=== PATIENT | male | born 1970 | race African-American/Black ===

== ENCOUNTER 2020-03-05 17:03 | Inpatient (IN) | payer OTHER ==
[~2020-03-05 17:03] MED LIST: Iopamidol 370 76% 100 ML VIAL ONE
[2020-03-05 18:07] LABS: #Lymphocytes 0.8 thou/uL (1.20-3.40); #Monocytes 1.9 thou/uL (0.11-0.59); #Neutrophils 13.6 thou/uL (1.40-6.50); %Basophils 0.1 % (0.0-1.0); %Eosinophils 0.1 % (0.0-10.0); %Monocytes 11.6 % (0.0-10.0); %Neutrophils 83.2 % (42.0-75.0); Hemoglobin 17.2 g/dL (14.0-18.0); Mean Corpuscular Hemoglobin 27.7 pg (27.0-31.0); Mean Corpuscular Volume 83.8 fL (78.0-98.0); Mean Platelet Volume 7.3 fL (7.4-10.4); Platelet Count 321 thou/uL (130-400); RBC Distribution Width 12.7 % (11.5-14.5); Red Blood Cell (RBC) Count 6.22 mill/uL (4.70-6.10); White Blood Cell (WBC) Count 16.3 thou/uL (4.8-10.8)
[2020-03-05 18:27] LABS: ALT (SGPT) 24 U/L (8-55); AST (SGOT) 16 U/L (5-34); Albumin 5.1 g/dL (3.5-5.0); Alkaline Phosphatase 92 U/L (40-110); Anion Gap 21 mmol/L (10-20); BUN (Urea Nitrogen) 17 mg/dL (8.9-20.6); Bilirubin, Total 1.2 mg/dL (0.2-1.2); Calc. Creatinine Clearance 0 mL/min (70-130); Calcium 10.8 mg/dL (7.8-10.44); Carbon Dioxide 20 mmol/L (22-29); Chloride 99 mmol/L (98-107); Estimated GFR-MDRD 76; Globulin 4.3 g/dL (2.4-3.5); Glucose 278 mg/dL (70-105); Potassium 4.8 mmol/L (3.5-5.1); Protein, Total 9.4 g/dL (6.0-8.3); Sodium 135 mmol/L (136-145)
--- NOTE | 2020-03-05 19:12 | RAD ---
SINGLE VIEW OF THE CHEST: Comparison: None History: Chest pain, possible hernia. FINDINGS: Single view of the chest shows a normal sized cardiomediastinal silhouette. There is no evidence of c onsolidation, mass, or pleural effusion. The bones are unremarkable. IMPRESSION: No evidence of acute cardiopulmonary disease. POS: EAA
[2020-03-05 19:37] LABS: Bacteria/HPF None Seen HPF (None Seen); Bilirubin Negative (Negative); Blood, Urine Negative (Negative); Clarity Clear (Clear); Glucose, Urine (Dipstick) Greater than 1000 mg/dL (Negative); Leukocyte Negative Leu/uL (Negative); Nitrite Negative (Negative); Protein, Urine (Dipstick) 30 mg/dL (Neg-Trace); RBC/HPF 0-3 HPF (0-3); Squamous Epithelial None Seen HPF (0-3); Urobilinogen Normal mg/dL (Less than 2); WBC/HPF 0-3 HPF (0-3)
--- NOTE | 2020-03-05 20:56 | CT ---
CT OF THE CHEST WITHOUT CONTRAST: Comparison: None History: Upper abdominal pain. 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 Evaluate for Covid infiltrates in the lungs. Diabetic patien t. Technique: Multiple contiguous axial images were obtained in a CT of the chest without contrast. Sagi ttal and coronal reformats were performed. FINDINGS: Atelectasis is seen in the right lung base. There is a 5 mm nodule in the right lung base on Image 31 of 56. No focal infiltrates are seen that are suspicious for an atypical infection. No pleural effus ion is seen. The heart is normal in size without focal cardiac abnormality. No hilar or mediastinal lymphadenopath y are seen. The osseous structures and chest wall soft tissues are unremarkable. Please see dedicated CT abdomen for findings below the diaphragm. IMPRESSION: 1. No evidence of acute intrathoracic abnormality. 2. Right lower lobe pulmonary nodule. A follow up CT in 6 months to 1 year is recommended to ensure s tability. POS: EAA
--- NOTE | 2020-03-05 21:01 | CT ---
CT ABDOMEN AND PELVIS WITH CONTRAST: Comparison: None History: Upper abdominal pain. Technique: Multiple contiguous axial images were obtained in a CT of the abdomen and pelvis with cont rast. Sagittal and coronal reformats were performed. FINDINGS: There is a 5.9 cm ventral hernia containing small bowel loops. There are distended proximal small bow el loops measuring up to 3.8 cm in size with decompressed distal small bowel loops. There is a transi tion point within the hernia. There is stranding changes surrounding the small bowel loops within the hernia. No free air or free fluid are seen in the abdomen or pelvis. The colon is unremarkable. The appendix is normal. The liver, gallbladder, kidneys, adrenal glands, spleen, and pancreas are unremarkable. No abdominal or pelvic lymphadenopathy are seen. Post-surgical changes are seen in the spine. Atelectasis is seen in the right lung base. IMPRESSION: Ventral hernia containing small bowel. There appears to be a small bowel obstruction secondary to inc arceration of the small bowel loops within the hernia. POS: EAA
[2020-03-05 21:19] LABS: Lactic Acid 3.6 mmol/L (0.5-2.2)
[2020-03-05] MEDS ORDERED: Morphine 4 MG/ML VIAL ONE (22:02)
[2020-03-05] MEDS ORDERED: Ondansetron PF 4 MG/2 ML Vial ONE (22:02)
[2020-03-05] MEDS ORDERED: Lidocaine Viscous Sol 2% 15 ml UD Cup ONE (22:02)
[2020-03-06] MEDS ORDERED: Ondansetron ODT 4 MG TAB SL PRN (02:04)
[2020-03-06] MEDS ORDERED: Sodium Chloride 0.9% 1,000 ML IV SCH ×2 (02:04→06:45)
[2020-03-06] MEDS ORDERED: Ondansetron PF 4 MG/2 ML Vial IVP PRN (02:04)
[2020-03-06 02:13] VITALS: BMI 34.5
[2020-03-06] MEDS ORDERED: Ketorolac Tromethamine 30 MG/ML VIAL IVP PRN (02:34)
[2020-03-06] MEDS ORDERED: Sodium Chloride 0.9% (PF) 10 ML VIAL FS PRN (02:35)
[2020-03-06] MEDS ORDERED: Morphine 2 MG/ML SYRINGE SLOW IVP PRN (02:35)
[2020-03-06] MEDS ORDERED: Enoxaparin Sodium 40 MG/0.4 ML SYRINGE SC SCH (02:45)
[2020-03-06] MEDS: Morphine 4 MG/ML VIAL SLOW IVP PRN ×2 (02:49→21:05)
[2020-03-06] MEDS: Sodium Chloride 0.9% 1,000 ML IV SCH ×4 (02:49→18:06)
[2020-03-06] MEDS: Pantoprazole 40 MG VIAL IVP SCH (07:50)
[2020-03-06] MEDS ORDERED: Piperacillin/Tazobactam 3.375 GM in Sodium Chloride 0.9% 100 ML IVPB SCH (09:00)
[2020-03-06] MEDS ORDERED: Morphine 4 MG/ML VIAL SLOW IVP SCH (09:00)
[2020-03-06] MEDS ORDERED: Ketorolac Tromethamine 30 MG/ML VIAL IVP SCH ×2 (09:15→12:00)
--- NOTE | 2020-03-06 09:53 | HP ---
HISTORY OF PRESENT ILLNESS: Ra Chicas is a 50-year-old black male, incarcerated for three years, has an incarcerated ventral hernia. The patient had an umbilical hernia as a child. He had a ventral hernia. The patient had a lumbar surgery, had a retroperitoneal approach, left paramedian incision and shortly after that developed abdominal pain and had a ventral hernia repair in the location between the umbilicus and xiphoid junction upper two-third, lower one-third. He then had a recurrence of that in 2014 and had a repair with mesh. He was told he had multiple hernias. He has had a recurrent hernia in the last 2 years. It has become acutely painful in the last 24 to 48 hours and could not be reduced at the [facility] snf. The patient was seen in the emergency room locally, underwent CAT scan of chest, abdomen, and pelvis noting an incarcerated hernia with proximally dilated small bowel loops and distally decompressed small bowel loops. The CAT scan of his chest and chest x-ray were negative for any acute pulmonary problems. There was noted to be a 5 mm nodule in the right lung base. Followup CAT scan in six months to a year recommended. Prior to incarceration, there is no history of tobacco use. He rarely used alcohol prior to incarceration. There is no history of drug use. As noted above, there is no history of COVID exposures that he know of. He stays in the [facility], where he is incarcerated. There has been no COVID cases. He had a COVID test done on admission, results pending. OUTPATIENT MEDICATIONS: Not listed. PAST MEDICAL HISTORY: Hypertension, medications to treat not listed. He has never had any cardiac problems. He has never had a colonoscopy. PAST SURGICAL HISTORY: Umbilical hernia repair as a child. Lumbar surgery. Subsequent ventral hernias resulted in that retroperitoneal approach through a paramedian incision. Hernia repaired and had a recurrent hernia in 2015 or 2016 had that repaired with mesh and had his recurrent ventral hernia incarcerated at this time. REVIEW OF SYSTEMS: Noncontributory 10-point. No cardiac symptomatology. No pulmonary symptomatology. FAMILY HISTORY: Noncontributory. PHYSICAL EXAMINATION: VITAL SIGNS: 5 feet 10 inches, 241 pounds, 34 BMI. 99.1, 114, 18, 136/81. HEAD, EARS, EYES, NOSE, AND THROAT: Unremarkable. LUNGS: Clear to auscultation. CARDIAC: Regular rate and rhythm without murmur or gallop. ABDOMEN: Soft, slightly tender, incarcerated ventral hernia that I cannot reduce after prolonged effort. He has a left midline paramedian incision. This is present from the umbilicus superiorly toward the xiphoid. Incarcerated hernia is at the junction of the mid two-third junction and lower third area between the xiphoid and the umbilicus. EXTREMITIES: No ankle edema. NEUROLOGICAL: Intact. No focal deficits. No lymphadenopathy in neck, axilla, or groins. Cranial nerves intact. LABORATORY DATA: Basic metabolic profile is normal. Glucose 278. Lactic acid high at 3.2. Calcium 10.8. White count 16, hemoglobin 17, differential unremarkable. ASSESSMENT AND PLAN: 1. Incarcerated hernia. I cannot reduce. I would recommend emergent repair, possibly using mesh. He understands risks and benefits and consents. 2. Hypertension, need medication list from the snf. 3. Multiple previous operations listed. 4. Incarcerated for the past 3 years. 5. COVID testing in an asymptomatic patient with a negative CAT scan of the chest and negative chest x-ray without symptoms of COVID, test to be available in 24 to 48 hours. 6. Right pulmonary nodule, probably benign. Followup CAT scan in six months to a year. Job ID: [id number]
[2020-03-06] MEDS ORDERED: Ondansetron ODT 8 MG TAB SL PRN (10:11)
[2020-03-06] MEDS ORDERED: Ondansetron ORAL SOLN. 4 MG/5 ML UDCUP PO PRN (10:11)
[2020-03-06] MEDS ORDERED: Famotidine/PF 20 mg/2ml Vial ONE (10:12)
[2020-03-06] MEDS ORDERED: Fentanyl 100 MCG/2 ML VIAL ONE ×2 (10:12→12:01)
[2020-03-06] MEDS ORDERED: Midazolam HCl 2 mg/2 ml Vial ONE (10:12)
[2020-03-06] MEDS ORDERED: Ondansetron PF 4 MG/2 ML Vial ONE (11:28)
[2020-03-06] MEDS ORDERED: Metoclopramide HCl 10 MG/2 ML VIAL ONE (11:28)
[2020-03-06] MEDS ORDERED: Succinylcholine Chloride 20 MG/ML 10 ml SYRINGE FS ONE (11:28)
[2020-03-06] MEDS ORDERED: Dexamethasone 20 MG/5 ML VIAL ONE (11:28)
[2020-03-06] MEDS ORDERED: Lidocaine 1% PF 5 ML VIAL ONE (11:28)
[2020-03-06] MEDS ORDERED: PHENYLEPHRINE-NS 100 MCG/ML 10 ML SYRINGE ONE (11:28)
[2020-03-06] MEDS ORDERED: PROPOFOL 200 MG/20 ML VIAL ONE (11:28)
[2020-03-06] MEDS ORDERED: SUGAMMADEX SODIUM 500 MG/5 ML VIAL ONE (12:01)
[2020-03-06] MEDS ORDERED: Dextrose 5% in Water 1,000 ML IV PRN (12:49)
[2020-03-06] MEDS ORDERED: Dextrose 50% Abboject 50 ML SYRINGE SLOW IVP PRN (12:49)
[2020-03-06] MEDS ORDERED: Promethazine HCl 25 MG/ML VIAL SLOW IVP PRN (12:55)
[2020-03-06] MEDS ORDERED: Ondansetron HCl/PF 4 MG/2 ML Vial IVP PRN (12:55)
[2020-03-06] MEDS ORDERED: Promethazine HCl 25 MG/ML VIAL IM PRN (12:55)
[2020-03-06] MEDS ORDERED: hydrALAZINE 20 MG/ML VIAL SLOW IVP PRN (12:56)
[2020-03-06] MEDS: HumaLOG 300 UNITS/3 ML VIAL SC PRN (15:36)
[2020-03-06] MEDS: Ketorolac Tromethamine 30 MG/ML VIAL IVP SCH ×2 (15:36→19:51)
[2020-03-06] MEDS: Piperacillin/Tazobactam 4.5 GM in Sodium Chloride 0.9% 100 ML IVPB SCH ×2 (17:07→23:52)
--- NOTE | 2020-03-06 18:12 | OP ---
DATE OF PROCEDURE: 03/06/2020 PREOPERATIVE DIAGNOSIS: Incarcerated ventral hernia, recurrent, third time, incarcerated status, [facility], COVID pending, negative CAT scan of chest and negative chest x-ray, oxygenating normally, small-bowel obstruction, inability to reduce his hernia. POSTOPERATIVE DIAGNOSIS: Strangulated ventral hernia without perforation, although foul smelling; adhesions from prior surgery; gangrenous small bowel segment. PROCEDURE: Exploratory laparotomy, adhesiolysis, small-bowel resection with primary anastomosis, ventral hernia repair without mesh (continuous suture of PDS with internal retentions of PDS). Wound VAC application of the skin and subcutaneous tissue after resecting hernia sac from the subcutaneous tissue. ANESTHESIA: General. ESTIMATED BLOOD LOSS: Twenty-seven mL. BLOOD TRANSFUSION: None. DESCRIPTION OF PROCEDURE: Patient was taken to the operating room, where under general anesthesia, abdomen was prepared with ChloraPrep and draped in routine fashion. Manley catheter had been placed at the beginning of the procedure and left in place. Midline incision was made, carried through the skin and subcutaneous tissue. There was incarcerated small bowel, approached in the midline. There was a thick adipose layer. There were multiple hernia defects with incarcerated small bowel gangrenous. There were multiple fascial bridges. Incision extended cephalad and caudally as necessary to perform the procedure. Fascia opened. Fascial bridges taken down, incarcerated small bowel leaving the abdominal cavity. Adhesiolysis performed, freeing omental adhesions and small bowel adhesions without small bowel spillage. There were irreversible gangrenous changes in segments of small bowel. Adhesiolysis carried out to allow bowel resection. The fascial edges were initially clean. Using cautery, removing attached gangrenous omentum and fatty tissue to identify the fascia. Hernia sacs removed from the subcutaneous tissues to identify the fascia clearly. Subcutaneous tissue was mobilized off the fascia, then identified the fascia clearly. Small bowel segment resected dividing the mesentery with the Impact LigaSure, resecting a segment of small bowel about 10 inches in length and small bowel anastomosis made by making two enterostomies and the 75 stapling device used for the anastomosis and defect closed with resecting the specimen with 2 fires of the MEHREEN. Mesenteric defect closed with 2-0 and 3-0 silk sutures. Anastomosis reinforced with interrupted Lembert sutures of 3-0 silk. Good anastomosis palpated. There was no leak. Abdominal cavity thoroughly irrigated. Our gloves were changed. Sponge and needle counts were correct. Two separate films were placed between the viscera and abdominal wall. Internal retention sutures of #1 PDS placed in the midline and in the upper and lower fascia. Midline fascia was closed with continuous suture of #1 PDS. Internal retention sutures tied. Subcutaneous tissues inspected, noted to be hemostatic. They were irrigated. Wound Care Team arrived to place a wound VAC. Patient tolerated the procedure well. Job ID: [id number]
[2020-03-06] MEDS: Enoxaparin Sodium 40 MG/0.4 ML SYRINGE SC SCH (19:52)
[2020-03-07] MEDS: Ketorolac Tromethamine 30 MG/ML VIAL IVP SCH ×4 (03:32→20:35)
[2020-03-07] MEDS: Sodium Chloride 0.9% 1,000 ML IV SCH ×3 (03:33→15:28)
[2020-03-07 05:27] LABS: Hemoglobin A1c 8.7 % (4.0-6.0)
[2020-03-07 05:29] LABS: Band 4 % (5-11); Eosinophils 1 % (0-10); Hemoglobin 12.3 g/dL (14.0-18.0); Lymphocytes 18 % (21-51); MDiff Complete? YES; Mean Corpuscular HGB CONC 32.5 g/dL (32.0-36.0); Mean Corpuscular Volume 86.2 fL (78.0-98.0); Mean Platelet Volume 7.3 fL (7.4-10.4); Metamyelocyte 1 % (0-0); Monocytes 11 % (0-10); Neutrophil 65 % (42-75); Platelet Count 234 thou/uL (130-400); Platelet Morphology Comment Appears Adequate; RBC Distribution Width 12.5 % (11.5-14.5); Red Blood Cell (RBC) Count 4.41 mill/uL (4.70-6.10); White Blood Cell (WBC) Count 6.5 thou/uL (4.8-10.8)
[2020-03-07] MEDS: Levothyroxine Sodium 100 MCG TAB PO SCH (05:37)
[2020-03-07] MEDS: Piperacillin/Tazobactam 4.5 GM in Sodium Chloride 0.9% 100 ML IVPB SCH ×3 (05:39→17:28)
[2020-03-07 05:50] LABS: Anion Gap 10 mmol/L (10-20); BUN (Urea Nitrogen) 23 mg/dL (8.9-20.6); Calc. Creatinine Clearance 132 mL/min (70-130); Calcium 8.6 mg/dL (7.8-10.44); Carbon Dioxide 25 mmol/L (22-29); Chloride 106 mmol/L (98-107); Estimated GFR-MDRD 90; Glucose 205 mg/dL (70-105); Sodium 137 mmol/L (136-145)
[2020-03-07] MEDS: HumaLOG 300 UNITS/3 ML VIAL SC PRN ×3 (05:51→17:27)
[2020-03-07] MEDS: Pantoprazole 40 MG VIAL IVP SCH (09:19)
[2020-03-07] MEDS: Lisinopril 5 MG TAB PO SCH (09:19)
[2020-03-07] MEDS ORDERED: Acetaminophen 500 MG TAB PO PRN (13:17)
[2020-03-07] MEDS ORDERED: traMADol HCl 50 MG TAB PO PRN (13:17)
--- NOTE | 2020-03-07 14:37 | PRG ---
DATE OF SERVICE: SUBJECTIVE: Mr. Chicas is doing well. He is tolerating full liquids without problems. There has been no nausea or vomiting. He has passed flatus. He has been urinating well. In fact, he has been mobilizing fluids. His abdomen is baseline stable. Further discussion with the patient's prior surgeries revealed that biological mesh was used and this is why I could not find mesh at the time of the exploration. This was in 2014, when that was appropriate. We had a discussion today about recurrent hernias, weight control, and diabetes management. OBJECTIVE: VITAL SIGNS: 98.9, 93, 140/83. HEAD, EARS, EYES, NOSE, AND THROAT: Unremarkable. LUNGS: Clear to auscultation. CARDIAC: Regular rate and rhythm without murmur or gallop. ABDOMEN: Soft. Bowel sounds present, plus flatus. Wound VAC in place. EXTREMITIES: Unremarkable. LABORATORY DATA: No laboratories. ASSESSMENT AND PLAN: 1. Doing well postoperatively. Advance to a diabetic diet in the morning. Resume metformin and insulin subcu. Glucose is under good control. Hemoglobin A1c was 8.7 this morning. Glucose is 197 to 227. Plan to review his wound tomorrow when they change the wound VAC. He may be ready for discharge in the next day or two pending his clinical course. I have reinforced to him that he needs to avoid lifting over 25 pounds for eight weeks. I have apprised him as to the increased risk of incisional hernia repair and that if this happens again, he will need to seek attention immediately to prevent strangulation, incarceration such as happened this hospitalization. 2. Diabetes mellitus, insulin dependent. 3. Hypertension. 4. Body mass index of 34, 5 feet 10 inches, 241 pounds. I have emphasized weight control for his obesity. Job ID: [id number]
[2020-03-07] MEDS: traMADol HCl 50 MG TAB PO PRN (15:25)
--- NOTE | 2020-03-07 17:06 | PQF ---
CLINICAL DOCUMENTATION IMPROVEMENT CLARIFICATION FORM: ICD-10 Updated PLEASE DO AN ADDENDUM TO THE PROGRESS NOTE WITH ANY DOCUMENTATION UPDATES OR ADDITIONS AND CARRY THROUGH TO DC SUMMARY. THANK YOU. DATE: 03/07/20 ATTN: DR. SKINNER Please exercise your independent, professional judgment in responding to the clarification form. Clinical indicators are provided on the bottom of this form for your review Please check appropriate box(s) to clarify if the following diagnosis has been ruled in or ruled out: "SEPSIS" [ ] Ruled in diagnosis [ ] Continue to treat [ yes ] Resolved [ ] Ruled out diagnosis [ ] Improving [ ] Cannot rule out diagnosis [ yes] Other diagnosis [ ] Unable to determine In addition, please specify: Present on Admission (POA): [yes ] Yes [ ] No [ ] Unable to determine For continuity of documentation, please document condition throughout progress notes and discharge summary. Thank You. 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 All Rights Reserved [email or web address] [email or web address]
[2020-03-07] MEDS: metFORMIN 500 MG TAB PO SCH (17:28)
[2020-03-07] MEDS: Enoxaparin Sodium 40 MG/0.4 ML SYRINGE SC SCH (20:36)
[2020-03-07] MEDS: Atorvastatin Calcium 40 MG TAB PO SCH (20:36)
[2020-03-07] MEDS: NPH, Human Insulin Isophane 300 UNIT/3 ML VIAL SC SCH (20:37)
[2020-03-08] MEDS: Piperacillin/Tazobactam 4.5 GM in Sodium Chloride 0.9% 100 ML IVPB SCH ×8 (00:12→23:54)
[2020-03-08] MEDS: Sodium Chloride 0.9% 1,000 ML IV SCH (00:53)
[2020-03-08] MEDS: Ketorolac Tromethamine 30 MG/ML VIAL IVP SCH ×2 (02:35→08:08)
[2020-03-08] MEDS: Levothyroxine Sodium 100 MCG TAB PO SCH (06:02)
[2020-03-08] MEDS: metFORMIN 500 MG TAB PO SCH ×2 (08:07→17:03)
[2020-03-08] MEDS: Lisinopril 5 MG TAB PO SCH (08:08)
[2020-03-08] MEDS: Pantoprazole 40 MG VIAL IVP SCH (08:08)
[2020-03-08] MEDS ORDERED: HYDROcodone/Acetaminophen 5/325 mg Tablet PO PRN ×2 (09:00)
[2020-03-08] MEDS: Morphine 4 MG/ML VIAL SLOW IVP PRN (09:13)
[2020-03-08] MEDS: NPH, Human Insulin Isophane 300 UNIT/3 ML VIAL SC SCH ×2 (09:49→20:38)
[2020-03-08] MEDS ORDERED: Ibuprofen 600 MG TAB PO PRN (12:29)
--- NOTE | 2020-03-08 12:48 | PRG ---
DATE OF SERVICE: 03/08/2020 SUBJECTIVE: Ra Chicas is doing well today. He is tolerating his diet. Wound Care Team at bedside and wound VAC has been changed. His wound looks healthy. He is healing, not ready for secondary closure. Wound VAC replaced. The patient did not have any nausea or vomiting. He is tolerating his diet. OBJECTIVE: LUNGS: Clear to auscultation. CARDIAC: Regular rate and rhythm without murmur or gallop. ABDOMEN: Soft, passing flatus, tolerating regular diet. VITAL SIGNS: Temperature 98.4 degrees, heart rate 100, respiratory rate 18, blood pressure 144/87. ASSESSMENT AND PLAN: The patient is doing well. Continue to observe today. Plan to transfer to long-term tomorrow. The patient has 1 out of 2 positive blood cultures for Escherichia coli. Sensitivities are pending. He is on Zosyn. I have added Levaquin. We will await sensitivities and if sensitivities return tomorrow, we can place him on appropriate oral antibiotics for the next week. His pain is well controlled with Tylenol and Ultram. We will add Chyna villegas Job ID: [id number]
[2020-03-08] MEDS: Atorvastatin Calcium 40 MG TAB PO SCH (20:38)
[2020-03-08] MEDS: Enoxaparin Sodium 40 MG/0.4 ML SYRINGE SC SCH (20:38)
[2020-03-08] MEDS: traMADol HCl 50 MG TAB PO PRN (21:36)
[2020-03-09] MEDS: Levothyroxine Sodium 100 MCG TAB PO SCH (05:47)
[2020-03-09] MEDS: Piperacillin/Tazobactam 4.5 GM in Sodium Chloride 0.9% 100 ML IVPB SCH (05:47)
[2020-03-09] MEDS: Ondansetron PF 4 MG/2 ML Vial IVP PRN ×2 (05:51→12:33)
[2020-03-09] MEDS: HumaLOG 300 UNITS/3 ML VIAL SC PRN (05:51)
[2020-03-09] MEDS ORDERED: Morphine 4 MG/ML VIAL SLOW IVP PRN (08:05)
[2020-03-09] MEDS ORDERED: Morphine 2 MG/ML SYRINGE SLOW IVP PRN (08:05)
[2020-03-09] MEDS ORDERED: Ondansetron ODT 8 MG TAB SL PRN (08:05)
[2020-03-09] MEDS ORDERED: Lactated Ringer's 1,000 ML IV SCH (08:15)
--- NOTE | 2020-03-09 08:16 | DIS ---
DATE OF ADMISSION: 03/05/2020 DATE OF DISCHARGE: 03/09/2020 DISCHARGE DIAGNOSES: 1. Strangulated recurrent ventral hernia requiring small bowel resection and anastomosis due to gangrenous bowel, 30 cm in length resected. 2. CT scan of the abdomen and pelvis on admission. 3. Skin and subcutaneous tissues left open for healing by secondary intention. Wound VAC used during this hospitalization. Probably, normal saline wet-to-dry dressings will be used upon discharge to the retirement. Once released from the retirement, the patient anticipates in the next week or two, he is going to [place] and can seek wound care consultation for wound VAC care and can follow up with his surgeon locally, who performed his incisional hernia repair in 2014 or 2015. 4. Diabetes mellitus. 5. Hypertension. 6. Obesity, 34 BMI, 241 pounds, 5 feet 10 inches. PROCEDURES PERFORMED: CT scan of the abdomen and pelvis on admission in the emergency room, exploratory laparotomy, small bowel resection, anastomosis, primary wound closure with absorbable sutures PDS #1 and internal retentions #1 PDS suture, resection of the hernia sac, closuring recurrent incisional hernia located between umbilicus and xiphoid in midline. HOSPITAL COURSE: A 50-year-old male patient with above-mentioned comorbidities, presents with past history of retroperitoneal approach lumbar surgery, postoperatively complicated by incisional hernia requiring repair. This recurred again in 2014 or 2015. Biological mesh was used, and this recurrent hernia repaired. The patient has been incarcerated and now has a recurrent hernia for the past several years. Becoming incarcerated, he developed a bowel obstruction, presented to the emergency room, undergone a CAT scan, and then taken to the operating room for repair. Postoperatively, he convalesced. He tolerated his diet. He was advised to avoid lifting over 25 pounds for 8 weeks. He should be up ambulating. Wound VAC care was used in the hospital, and probably in the alf, it will not be allowed, and he will transition to normal saline with dry dressings. The patient has a surgeon in [place]. 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 The patient had positive bacteremia, E. coli, 1/2 blood cultures, resistant to penicillins and Augmentin, but sensitive to Levaquin. He was sent home on Levaquin 500 a day for 7 days. Pain management: 1. Tylenol 1000 mg p.o. q.i.d. p.r.n. 2. Motrin 600 mg p.o. q.i.d. p.r.n. 3. Ultram 50 to 100 mg p.o. q.i.d. p.r.n. pain. Diabetic diet. Resume home medications: 1. Lisinopril 5 mg a day. 2. Levothyroxine 100 mcg a day. 3. Metformin 1000 mg b.i.d. with meals. . 4. MiraLAX daily. 5. Motrin 600 mg p.o. q.i.d. p.r.n. 6. . Job ID: [id number]
--- NOTE | 2020-03-09 08:28 | PRG ---
DATE OF SERVICE: 03/09/2020 SUBJECTIVE: Mr. Chicas anticipated to go home today; however, he yesterday developed nausea, which I was not informed of. He developed nausea and vomiting today, this morning, persistent. He reports having flatus and a bowel movement last night. He cannot hold anything down. His IV was saline locked yesterday morning. Obviously, his discharge will be held, IV fluids re-initiated, labs obtained, abdominal x-rays obtained, and he will be monitored delaying discharge another 48 to 72 hours at least. The patient's blood cultures, E. coli, have returned resistant to penicillins and sensitive to quinolones. He will be restarted on IV Levaquin and be given on discharge 7 days of Levaquin daily for his E. coli bacteremia. When discharged home, wound care will consist of a wound VAC in the hospital. More likely when he is discharged to care home, he will need a normal saline wet-to-dry dressing. When he is released from care home, he will seek his surgeon in [place] or [facility], and maybe, they can restart wound VAC. Currently, he can wash his wound with soap and water in the shower, wound VAC changes, and in the care home, daily wash the wound with soap and water in the shower and apply saline wet-to-dry dressing. patch worker is working on [facility] stay in the care home. Dr. Orellana is covering over the weekend. OBJECTIVE: VITAL SIGNS: Temperature 98.5 degrees, heart rate 88, blood pressure 147/88. LUNGS: Clear to auscultation. CARDIAC: Regular rate and rhythm without murmur or gallop. ABDOMEN: Soft. Occasional bowel sounds. Wound VAC in place. EXTREMITIES: Unremarkable. ASSESSMENT AND PLAN: Nausea and vomiting postoperatively. Restart IV fluids. Continue IV antibiotics. Hold oral medications. Continue sliding scale insulin for his diabetes. Hold his oral medications till his nausea and vomiting resolve. Re-assess labs in the morning. Job ID: [id number]
[2020-03-09] MEDS: Lactated Ringer's 1,000 ML IV SCH ×3 (08:29→23:18)
[2020-03-09] MEDS: Polyethylene Glycol 3350 17 GM Packet PO SCH (08:29)
[2020-03-09] MEDS: Pantoprazole 40 MG VIAL IVP SCH (08:30)
[2020-03-09] MEDS: NPH, Human Insulin Isophane 300 UNIT/3 ML VIAL SC SCH ×2 (08:30→20:36)
[2020-03-09] MEDS: Lisinopril 5 MG TAB PO SCH (08:31)
[2020-03-09] MEDS: metFORMIN 500 MG TAB PO SCH (08:32)
[2020-03-09 09:16] LABS: ALT (SGPT) 16 U/L (8-55); AST (SGOT) 19 U/L (5-34); Albumin 3.6 g/dL (3.5-5.0); Alkaline Phosphatase 73 U/L (40-110); Anion Gap 15 mmol/L (10-20); BUN (Urea Nitrogen) 17 mg/dL (8.9-20.6); Bilirubin, Total 0.7 mg/dL (0.2-1.2); Calc. Creatinine Clearance 140 mL/min (70-130); Calcium 9.1 mg/dL (7.8-10.44); Carbon Dioxide 22 mmol/L (22-29); Chloride 106 mmol/L (98-107); Estimated GFR-MDRD Greater than 90; Globulin 3.6 g/dL (2.4-3.5); Glucose 147 mg/dL (70-105); Potassium 3.7 mmol/L (3.5-5.1); Protein, Total 7.2 g/dL (6.0-8.3); Sodium 139 mmol/L (136-145)
[2020-03-09 09:35] LABS: Hemoglobin 13.3 g/dL (14.0-18.0); Mean Corpuscular HGB CONC 32.7 g/dL (32.0-36.0); Mean Corpuscular Hemoglobin 28.5 pg (27.0-31.0); Mean Corpuscular Volume 87.1 fL (78.0-98.0); Mean Platelet Volume 7.5 fL (7.4-10.4); Platelet Count 278 thou/uL (130-400); RBC Distribution Width 12.5 % (11.5-14.5); Red Blood Cell (RBC) Count 4.67 mill/uL (4.70-6.10); White Blood Cell (WBC) Count 13.1 thou/uL (4.8-10.8)
[2020-03-09 09:39] LABS: Band 6 % (5-11); Eosinophils 3 % (0-10); Lymphocytes 8 % (21-51); MDiff Complete? YES; Monocytes 8 % (0-10); Neutrophil 75 % (42-75); Platelet Morphology Comment Appears Adequate; RBC Morphology Normal
--- NOTE | 2020-03-09 09:42 | RAD ---
ABDOMEN 2 VIEWS AND CHEST 1 VIEW: HISTORY: Upper abdominal pain. Followup small bowel obstruction. COMPARISON: CT abdomen and pelvis 03/05/2020. FINDINGS: There are some persistent dilated loops of small bowel with some scattered air fluid levels with less overall distention than on the prior study. Postop changes at L3-L4. No free intraperitoneal air. IMPRESSION: Some persistent dilated small bowel loops with air and fluid levels with less distention than on the prior study. No evidence for other significant acute process. Mild linear changes in the lung zones , possibly some minimal subsegmental atelectasis, but no confluent pneumonia. POS: [facility]
[2020-03-09] MEDS: Ketorolac Tromethamine 30 MG/ML VIAL IVP SCH ×3 (12:32→23:17)
--- NOTE | 2020-03-09 14:08 | EKG ---
Test Reason : TACHY Blood Pressure : / mmHG Vent. Rate : 123 BPM Atrial Rate : 123 BPM P-R Int : 138 ms QRS Dur : 088 ms QT Int : 320 ms P-R-T Axes : 034 059 019 degrees QTc Int : 458 ms Sinus tachycardia Otherwise normal ECG Confirmed by MARLON GAMBLE ([id number]), clinical editor DANNI ORTEGA ([id number]) on 03/09/2020 2:07:49 PM Referred By: Confirmed By:MARLON GAMBLE
[2020-03-09] MEDS: Enoxaparin Sodium 40 MG/0.4 ML SYRINGE SC SCH (20:31)
--- NOTE | 2020-03-10 00:22 | PRG ---
DATE OF SERVICE: 03/09/2020 SUBJECTIVE: The patient remains on the medical floor, awake and alert, in no distress. Trauma Service is covering for Dr. Ashford. The patient reports walking earlier, but still not passing any flatus or having any bowel movements. The patient states that his pain is better this evening. The patient denies any nausea or vomiting. OBJECTIVE: VITAL SIGNS: Stable, afebrile. GENERAL: Well-appearing middle-age male, incarcerated, in no acute distress. RESPIRATORY: Good inspiratory and expiratory effort. No respiratory distress. ABDOMEN: Wound VAC in place and working appropriately. EXTREMITIES: No focal deficits. ASSESSMENT AND PLAN: Nausea, vomiting postoperatively. IV maintenance fluids, IV antibiotics, bowel rest, hold oral medications. Continue to have the patient walk frequently. Plan was discussed with the patient, who agrees. Job ID: [id number]
[2020-03-10 05:58] LABS: Anion Gap 15 mmol/L (10-20); BUN (Urea Nitrogen) 17 mg/dL (8.9-20.6); Calc. Creatinine Clearance 170 mL/min (70-130); Calcium 8.8 mg/dL (7.8-10.44); Carbon Dioxide 19 mmol/L (22-29); Chloride 109 mmol/L (98-107); Estimated GFR-MDRD Greater than 90; Glucose 152 mg/dL (70-105); Magnesium 1.8 mg/dL (1.6-2.6); Potassium 4.1 mmol/L (3.5-5.1); Sodium 139 mmol/L (136-145)
[2020-03-10] MEDS: Ketorolac Tromethamine 30 MG/ML VIAL IVP SCH (06:04)
[2020-03-10] MEDS: Levothyroxine Sodium 100 MCG TAB PO SCH (06:04)
[2020-03-10 06:06] LABS: Phosphorus 2.4 mg/dL (2.3-4.7)
[2020-03-10 06:08] LABS: Hemoglobin 11.3 g/dL (14.0-18.0); Mean Corpuscular HGB CONC 32.7 g/dL (32.0-36.0); Mean Corpuscular Hemoglobin 27.8 pg (27.0-31.0); Mean Corpuscular Volume 85.2 fL (78.0-98.0); Platelet Count 274 thou/uL (130-400); RBC Distribution Width 12.4 % (11.5-14.5); Red Blood Cell (RBC) Count 4.06 mill/uL (4.70-6.10); White Blood Cell (WBC) Count 8.5 thou/uL (4.8-10.8)
[2020-03-10] MEDS: Lactated Ringer's 1,000 ML IV SCH ×3 (06:10→16:56)
[2020-03-10 06:26] LABS: Band 13 % (5-11); Lymphocytes 21 % (21-51); MDiff Complete? YES; Monocytes 14 % (0-10); Neutrophil 51 % (42-75)
[2020-03-10] MEDS ORDERED: Magnesium 2 GM/50 ML 2 GM in Premix Bag 1 BAG IVPB SCH (07:45)
[2020-03-10] MEDS ORDERED: Sodium Phosphate 15 MMOL in Sodium Chloride 0.9% 250 ML 250 ML IVPB SCH (07:45)
[2020-03-10] MEDS: Lisinopril 5 MG TAB PO SCH (08:06)
[2020-03-10] MEDS: Pantoprazole 40 MG VIAL IVP SCH (08:07)
[2020-03-10] MEDS: Polyethylene Glycol 3350 17 GM Packet PO SCH (08:46)
[2020-03-10] MEDS: NPH, Human Insulin Isophane 300 UNIT/3 ML VIAL SC SCH ×2 (08:46→20:53)
[2020-03-10] MEDS: Acetaminophen 500 MG TAB PO SCH ×2 (11:17→17:49)
[2020-03-10] MEDS ORDERED: Lisinopril 5 MG TAB PO SCH (12:30)
--- NOTE | 2020-03-10 13:41 | PRG ---
DATE OF SERVICE: 03/10/2020 SUBJECTIVE: The patient was seen this morning, sitting up in a chair. He reported his pain is much better, resolved than yesterday. He continues to ambulate frequently throughout the day. He has not passed any flatus since surgery. Reports no nausea or vomiting. OBJECTIVE: VITAL SIGNS: Temperature 98.3, pulse 64, respirations 16, oxygen saturation 95% on room air, and blood pressure 147/81. GENERAL: Well-appearing middle-aged male, sitting up in bed with no signs of acute distress. PULMONARY: Equal chest rise and fall. Clear breath sounds bilaterally. No signs of acute respiratory distress. CARDIAC: Regular rate and rhythm. No murmurs, gallops, or rubs. GI: Abdomen is soft, nontender, and nondistended. Midline wound with wound VAC in place with serosanguineous output in canister. EXTREMITIES: 2+ pulses in all extremities. Gross motor and sensation intact. No significant swelling noted. NEURO: GCS is 15. LABORATORY FINDINGS: White count 8.5, hemoglobin 11.3, hematocrit 34.6, platelets 274, sodium 139, potassium 4.1, chloride 109, bicarb 19, BUN 17, creatinine 0.82, glucose 152, phosphorus 2.4, and magnesium 1.8. DIAGNOSTIC FINDINGS: There are no new diagnostic findings to report. ASSESSMENT: 1. Postop day 5 status post exploratory laparotomy, adhesiolysis, small-bowel resection with primary anastomosis, ventral hernia repair without mesh and wound VAC placement. 2. Ileus, resolving. 3. History of diabetes and hypertension. PLAN: Advance to clear liquid diet. Continue IV fluids for now. Discontinue IV pain medications and transition only to p.o. Continue wound VAC. Continue ambulating as much as possible to increase the patient's lisinopril from 5 mg to 10 mg daily as he has poor blood pressure control. We will closely monitor his kidney function and blood pressure. This patient was seen and evaluated by Dr. Orellana and myself this morning during rounds. Job ID: [id number]
[2020-03-10] MEDS: Ibuprofen 600 MG TAB PO SCH ×2 (15:02→22:35)
[2020-03-10] MEDS: Enoxaparin Sodium 40 MG/0.4 ML SYRINGE SC SCH (20:52)
[2020-03-11] MEDS: Acetaminophen 500 MG TAB PO SCH ×4 (01:06→18:47)
[2020-03-11] MEDS: Lactated Ringer's 1,000 ML IV SCH ×2 (01:36→08:51)
[2020-03-11] MEDS: Ibuprofen 600 MG TAB PO SCH ×2 (05:26→14:23)
[2020-03-11] MEDS: Levothyroxine Sodium 100 MCG TAB PO SCH (05:26)
[2020-03-11 05:33] LABS: Hemoglobin 11.5 g/dL (14.0-18.0); Mean Corpuscular HGB CONC 32.2 g/dL (32.0-36.0); Mean Corpuscular Hemoglobin 27.6 pg (27.0-31.0); Mean Corpuscular Volume 85.7 fL (78.0-98.0); Mean Platelet Volume 7.3 fL (7.4-10.4); Platelet Count 294 thou/uL (130-400); RBC Distribution Width 12.5 % (11.5-14.5); Red Blood Cell (RBC) Count 4.17 mill/uL (4.70-6.10)
[2020-03-11 05:50] LABS: Band 8 % (5-11); Eosinophils 2 % (0-10); Lymphocytes 21 % (21-51); MDiff Complete? YES; Metamyelocyte 2 % (0-0); Monocytes 14 % (0-10); Neutrophil 53 % (42-75)
[2020-03-11 06:21] LABS: Anion Gap 11 mmol/L (10-20); BUN (Urea Nitrogen) 8 mg/dL (8.9-20.6); Calc. Creatinine Clearance 179 mL/min (70-130); Calcium 8.6 mg/dL (7.8-10.44); Carbon Dioxide 25 mmol/L (22-29); Chloride 105 mmol/L (98-107); Estimated GFR-MDRD Greater than 90; Glucose 130 mg/dL (70-105); Magnesium 1.8 mg/dL (1.6-2.6); Phosphorus 3.1 mg/dL (2.3-4.7); Potassium 3.4 mmol/L (3.5-5.1); Sodium 138 mmol/L (136-145)
[2020-03-11] MEDS ORDERED: Potassium Phosphate 30 MMOL in Sodium Chloride 0.9% 250 ML 250 ML IVPB SCH (08:45)
[2020-03-11] MEDS ORDERED: Magnesium 2 GM/50 ML 2 GM in Premix Bag 1 BAG IVPB SCH (08:45)
[2020-03-11] MEDS: Pantoprazole 40 MG VIAL IVP SCH (08:54)
[2020-03-11] MEDS: Lisinopril 10 MG TAB PO SCH (08:55)
[2020-03-11] MEDS: Polyethylene Glycol 3350 17 GM Packet PO SCH (08:57)
[2020-03-11] MEDS: NPH, Human Insulin Isophane 300 UNIT/3 ML VIAL SC SCH ×2 (09:19→20:35)
--- NOTE | 2020-03-11 11:55 | PRG ---
DATE OF SERVICE: 03/11/2020 SUBJECTIVE: Mr. Chicas is a 50-year-old inmate of a correctional facility. He is postoperative day #5, status post exploratory laparotomy, adhesiolysis, segmental small bowel resection with primary anastomosis and ventral hernia repair. The patient is awake and alert this morning. He reports having had a bowel movement and passing flatus. He is tolerating clear liquid diet. OBJECTIVE: VITAL SIGNS: This morning includes blood pressure 151/65, pulse 67, respiratory rate 18, temperature 98.6 degrees Fahrenheit, oxygen saturation 96% on room air. ABDOMEN: Soft and moderately distended. Wound VAC was removed. The fascia remains intact. No necrosis or gross purulence. The subcutaneous fat is healthy. The patient clearly has no peritoneal signs on examination. NEUROLOGIC: Reveals no focal deficits present. LABORATORY FINDINGS: Today includes a CBC with 7000 white blood cells. This is a marked improvement from 16,300 on admission. Hemoglobin and hematocrit stable at 11.5 and 35.8 respectively. Platelet count is 294,000. Metabolic profile; sodium is 138, potassium is 3.4, chloride is 105, bicarb is 25, BUN is 8, creatinine is 0.78, glucose is 130, magnesium is 1.8, and phosphorus is 3.1. IMPRESSIONS: 1. Postoperative day #5, status post exploratory laparotomy, segmental small bowel resection with primary anastomosis and repair of ventral hernia. 2. Resolved adynamic ileus. 3. Acute . 4. Acute hypomagnesemia. PLAN: 1. Correct abnormal electrolytes. 2. Increased diet and activity. 3. Anticipate discharge back to the correctional facility within next 24 hours, if the patient continues to tolerated general diet with no exacerbation of abdominal pain. 4. Plan is discussed with the patient who indicates understanding of information given. I have answered his questions. Job ID: [id number]
[2020-03-11] MEDS: Enoxaparin Sodium 40 MG/0.4 ML SYRINGE SC SCH (20:36)
[2020-03-12] MEDS: Acetaminophen 500 MG TAB PO SCH ×4 (01:34→18:31)
[2020-03-12] MEDS: Ibuprofen 600 MG TAB PO SCH ×4 (05:27→21:13)
[2020-03-12] MEDS: Levothyroxine Sodium 100 MCG TAB PO SCH (05:27)
[2020-03-12 06:06] LABS: Anion Gap 14 mmol/L (10-20); BUN (Urea Nitrogen) 8 mg/dL (8.9-20.6); Calc. Creatinine Clearance 152 mL/min (70-130); Carbon Dioxide 24 mmol/L (22-29); Chloride 107 mmol/L (98-107); Estimated GFR-MDRD Greater than 90; Glucose 120 mg/dL (70-105); Phosphorus 3.7 mg/dL (2.3-4.7); Potassium 3.5 mmol/L (3.5-5.1); Sodium 141 mmol/L (136-145)
[2020-03-12] MEDS: Lisinopril 10 MG TAB PO SCH (07:46)
[2020-03-12] MEDS: NPH, Human Insulin Isophane 300 UNIT/3 ML VIAL SC SCH ×2 (07:46→21:13)
[2020-03-12] MEDS: Pantoprazole 40 MG VIAL IVP SCH (07:47)
[2020-03-12] MEDS: Polyethylene Glycol 3350 17 GM Packet PO SCH (07:47)
[2020-03-12] MEDS: traMADol HCl 50 MG TAB PO PRN (10:13)
[2020-03-12] MEDS: HumaLOG 300 UNITS/3 ML VIAL SC PRN (11:56)
[2020-03-12 19:26] VITALS: TEMP 98.2
[2020-03-12] MEDS: Enoxaparin Sodium 40 MG/0.4 ML SYRINGE SC SCH (21:12)
[2020-03-13] MEDS: Acetaminophen 500 MG TAB PO SCH ×4 (01:09→18:12)
[2020-03-13] MEDS: Levothyroxine Sodium 100 MCG TAB PO SCH (05:49)
[2020-03-13] MEDS: Ibuprofen 600 MG TAB PO SCH ×2 (05:50→13:49)
[2020-03-13 08:11] VITALS: BP 134/85
[2020-03-13] MEDS: Lisinopril 10 MG TAB PO SCH (09:12)
[2020-03-13] MEDS: Polyethylene Glycol 3350 17 GM Packet PO SCH (09:13)
[2020-03-13] MEDS: NPH, Human Insulin Isophane 300 UNIT/3 ML VIAL SC SCH (09:13)
[2020-03-13] MEDS: traMADol HCl 50 MG TAB PO PRN (09:22)
--- NOTE | 2020-03-13 13:58 | PDOC.GSPN ---
Surgery Progress Note: Subj - Subjective Narrative: Patient feels fine. Wet-to-dry dressing was already replaced earlier today so was not taken down but the outer dressing is dry. He has appropriate postoperative surgical tenderness which is well-controlled on medications. He is eating normally and having normal bowel movements. He is still awaiting placement at an [facility]. Continue current management. Surgery Progress Note: Obj - Vital signs Vital signs: Vital Signs - Most Recent Temp Pulse Resp BP Pulse Ox 98.2 F 89 18 134/85 98 03/13/20 08:00 03/13/20 08:00 03/13/20 08:00 03/13/20 09:12 03/13/20 08:00 Surgery Progress Note: Results - Labs Result Diagrams: 03/11/20 05:18 03/12/20 05:39 Lab results: Laboratory Results - last 24 hr 03/13/20 03/13/20 05:45 11:16 POC Glucose 110 139 H
--- NOTE | 2020-03-14 06:56 | DIS ---
DATE OF ADMISSION: 03/05/2020 DATE OF DISCHARGE: 03/13/2020 ADDENDUM: Initial discharge summary dictated 03/09. Addendum to that discharge summary. The patient had symptoms of an ileus and was made n.p.o., given IV fluids, and with time, he convalesced to resume bowel function, tolerating a diet. By this time, he was discharged home. Wound VAC has been removed. He is treated with normal saline wet-to-dry dressing. He expects to be released from [facility] and his home is in the [place] area and his previous surgeon who did this hernia repair, he will contact to do followup. I will be glad to see him as an outpatient if he wants to drive this distance to see me. Otherwise, he will follow up with his surgeon in [place] and they will arrange outpatient wound VAC care. Tylenol, Advil, Ultram should be sufficient for pain control. He is sent home with Levaquin 750 a day for 7 days due to E. coli bacteremia resistant to penicillins and Augmentin. Job ID: [id number]
--- NOTE | 2020-03-14 09:19 | PQF ---
TOLU BROWN RICHARD D MD [id number] CLINICAL DOCUMENTATION CLARIFICATION FORM: POST DISCHARGE Addendum to original discharge summary date: ____ Late entry note date: __ DATE: 03/14/2020 ATTN: Malik Alex Please exercise your independent, professional judgment in responding to the clarification form. Clinical indicators are provided on the bottom of this form for your review Final Diagnosis on the Pathology report: Acute serositis with adhesions Based on the pathological findings of Acute serositis with adhesions, is this a confirmed diagnosis for this patient? [ ] Yes, this is a secondary diagnosis for this patient [ ] Other (additional comments): [ ] Unable to determine For continuity of documentation, please document condition throughout progress notes and discharge summary. Thank You. CLINICAL INDICATORS - SIGNS/ SYMPTOMS / LABS / RESULTS AND LOCATION IN MR Path report p1 03/06 Ischemic bowel with patchy transmural inflammation and infarct Path report p1 03/06 Acute serositis with adhesions H&P 03/05 present with abd pain and underwent CT shows incarcerated hernia with proximally dilated small bowels loops and distally decompressed small bowel loops RISK FACTORS / RESULTS AND LOCATION IN MR Operative report p1 03/06 Incarcerated ventral hernia Operative report p1 03/06 Gangrenous small bowel segment H&P 03/05 HTN PN p1 03/07 DM PN p1 03/07 Obesity TREATMENTS / RESULTS AND LOCATION IN MR MAR 03/06 IV Zosyn 4.5 mg MAR 03/08 IV Levofloxacin 750 mg JAN 17 IVF LR 1L Operative report 03/06 Hernia repair, Adhesiolysis, Small bowel resection Collected 03/09 CT of Abdomen (This form is maintained as a part of the permanent medical record) 2014 [employer] All Rights Reserved [email or web address]
== END 2020-03-13 19:18 | DRG 853 ==
LOC: ERS 17:03 → T4-B 23:30 → EEVIPCON 23:30
PROVIDERS: ADMIT Specialist; ATTEND Specialist
PROC: 8E0ZXY6 Isolation (ICD-10-PCS; 2020-03-05)
PROC: 0DB80ZZ Excision of Small Intestine, Open Approach (ICD-10-PCS; principal; 2020-03-06)
PROC: 0WQF0ZZ Repair Abdominal Wall, Open Approach (ICD-10-PCS; 2020-03-06)
DX: A41.51 Sepsis due to Escherichia coli [E. coli] (principal); K43.1 Incisional hernia with gangrene; Z16.11 Resistance to penicillins; K56.7 Ileus, unspecified; Z20.828 Contact with and (suspected) exposure to other viral communicable diseases; E11.9 Type 2 diabetes mellitus without complications; I10 Essential (primary) hypertension; E66.9 Obesity, unspecified; R91.1 Solitary pulmonary nodule; E78.5 Hyperlipidemia, unspecified; E03.9 Hypothyroidism, unspecified; E83.42 Hypomagnesemia; R11.2 Nausea with vomiting, unspecified; Z68.34 Body mass index [BMI] 34.0-34.9, adult; Z79.899 Other long term (current) drug therapy; Z79.4 Long term (current) use of insulin; Z79.890 Hormone replacement therapy
CPT/HCPCS: 36415; 36416; 71045; 71250; 74022; 74177; 80048; 80053; 81003; 81015; 83036; 83605; 83735; 84100; 85007; 85025; 85027; 87040; 87077; 87086; 87149; 87186; 87635; 87804; 88307; 93005; 94760; 96361; 96374; 96375; C9113; J1100; J1650; J1815; J1885; J1956; J2001; J2250; J2270; J2405; J2543; J2704; J2765; J3010; J3475; J3490; J7050; Q0162; Q9967; S0028; U0002